=== PATIENT | male | born 1950 | race Caucasian/White ===

== ENCOUNTER 2017-10-26 12:08 | Day surgery (SDC) | payer OTHER ==
[2017-10-26] MEDS ORDERED: PROPOFOL 40 ML (14:23)
[2017-10-26] MEDS ORDERED: LIDOCAINE 2% (SDV) 5 ML INJ (14:23)
== END 2017-10-26 16:03 | disposition home or self-care (01) ==
LOC: GIL 12:08
DX: Z12.11 Encounter for screening for malignant neoplasm of colon (principal); E78.5 Hyperlipidemia, unspecified; E11.9 Type 2 diabetes mellitus without complications; I10 Essential (primary) hypertension; Z86.73 Personal history of transient ischemic attack (TIA), and cerebral infarction without residual deficits
CPT/HCPCS: 45378; 82962

== ENCOUNTER 2018-03-18 11:32 | Day surgery (SDC) | payer OTHER ==
[2018-03-18] MEDS ORDERED: LIDOCAINE 100 MG SYRINGE (13:57)
[2018-03-18] MEDS ORDERED: PROPOFOL 40 ML (13:57)
[2018-03-18] MEDS ORDERED: DEXTROSE 50% 50 ML SYRINGE (14:51)
[2018-03-18] MEDS ORDERED: DEXTROSE 50% 50 ML SYRINGE IV ×3 (15:30)
[2018-03-18] MEDS ORDERED: GLUCOSE GEL 15 GRAM TUBE BUCCAL (15:30)
[2018-03-18] MEDS ORDERED: GLUCOSE GEL 15 GRAM TUBE PO ×2 (15:30)
[2018-03-18] MEDS ORDERED: GLUCAGON 1 MG INJ IM (15:30)
== END 2018-03-18 16:25 | disposition home or self-care (01) ==
LOC: GIL 11:32
DX: Z12.11 Encounter for screening for malignant neoplasm of colon (principal); K64.0 First degree hemorrhoids; I10 Essential (primary) hypertension; E11.9 Type 2 diabetes mellitus without complications; Z86.73 Personal history of transient ischemic attack (TIA), and cerebral infarction without residual deficits
CPT/HCPCS: 45378; 82962